=== PATIENT | female | born 1950 | race Caucasian/White ===

== ENCOUNTER 2022-02-05 10:52 | Outpatient (CLI) | payer OTHER ==
[~2022-02-05 10:52] MED LIST: LEVOTHYROXINE25 MCG PO; LOSARTAN-HCTZ1 EAC1 PO; NEURONTIN300 MG PO; ROSUVASTATIN CA20 MG
== END 2022-02-05 10:53 | disposition home or self-care (01) ==
LOC: LAB 10:52
PROVIDERS: ATTEND Urology
DX: N30.00 Acute cystitis without hematuria (principal); N13.1 Hydronephrosis with ureteral stricture, not elsewhere classified

== ENCOUNTER 2022-02-23 15:21 | Outpatient (CLI) | payer OTHER | END 2022-02-23 15:27 | disposition home or self-care (01) | LOC: LAB 15:21 | PROVIDERS: ATTEND Urology | DX: N30.00 Acute cystitis without hematuria (principal) ==